=== PATIENT | female | born 1975 | race Hispanic/Latino ===

== ENCOUNTER 2022-02-15 16:58 | Emergency (ER) | payer MEDICARE ==
[~2022-02-15] VITALS: Ht 160 cm; Wt 90.7 kg
[2022-02-15 17:28] LABS: BASOPHILS % (AUTO) 0.6 % (0.0-5.0); EOSINOPHILS % (AUTO) 0.7 % (0.0-8.0); HEMATOCRIT 41.4 % (36-48); LYMPHOCYTES % (AUTO) 25.6 % (21.0-51.0); MEAN CORPUSCULAR HGB CONC 34.8 g/dL (32.0-36.0); MEAN CORPUSCULAR VOLUME 86.3 fL (79-99); MONOCYTES % (AUTO) 7.6 % (3.0-13.0); NEUTROPHILS % (AUTO) 64.9 % (40.0-77.0); PLATELET COUNT (AUTO) 269 K/uL (130-400); RED CELL DISTRIBUTION WIDTH 13.2 % (11.0-15.5); WHITE BLOOD COUNT (AUTO) 8.9 K/uL (4.8-10.8)
[2022-02-15] MEDS ORDERED: LIDOCAINE HCL 1% 20 ML VIAL INJ SCH (17:30)
[2022-02-15] MEDS ORDERED: SULFAMETHOX-TMP DS 800/160 TAB PO SCH (17:30)
[2022-02-15 17:32] LABS: CREATININE 0.7 mg/dL (0.5-1.5); POTASSIUM 3.8 mmol/L (3.5-5.1)
[2022-02-15 17:38] LABS: ALBUMIN 3.4 g/dL (3.5-5.0); TOTAL PROTEIN, SERUM 7.6 g/dL (6.0-8.3)
[2022-02-15] MEDS ORDERED: SULF1TAB42 PO (18:15)
[2022-02-15 18:25] VITALS: BP 136/82
== END 2022-02-15 18:27 | disposition home or self-care (01) ==
LOC: EDH 16:58
DX: L02.31 Cutaneous abscess of buttock (principal); E11.65 Type 2 diabetes mellitus with hyperglycemia
CPT/HCPCS: 10060; 36415; 80053; 85025

== ENCOUNTER 2022-05-04 13:15 | Emergency (ER) | payer MEDICARE ==
[~2022-05-04] VITALS: Ht 160 cm; Wt 90.7 kg
[~2022-05-04 13:15] MED LIST: SULF1TAB42 PO
[2022-05-04 13:46] LABS: BASOPHILS % (AUTO) 0.2 % (0.0-5.0); EOSINOPHILS % (AUTO) 0.2 % (0.0-8.0); HEMATOCRIT 44.7 % (36-48); LYMPHOCYTES % (AUTO) 5.1 % (21.0-51.0); MEAN CORPUSCULAR HEMOGLOBIN 29.6 pg (27.0-33.0); MEAN CORPUSCULAR HGB CONC 34.5 g/dL (32.0-36.0); MEAN CORPUSCULAR VOLUME 85.8 fL (79-99); MONOCYTES % (AUTO) 5.4 % (3.0-13.0); NEUTROPHILS % (AUTO) 88.4 % (40.0-77.0); PLATELET COUNT (AUTO) 248 K/uL (130-400); RED BLOOD CELL COUNT(AUTO) 5.21 MIL/uL (4.00-5.50); WHITE BLOOD COUNT (AUTO) 11.3 K/uL (4.8-10.8)
[2022-05-04 13:55] LABS: CREATININE 0.8 mg/dL (0.5-1.5); POTASSIUM 4.2 mmol/L (3.5-5.1)
[2022-05-04 13:59] LABS: ALBUMIN 3.6 g/dL (3.5-5.0); TOTAL PROTEIN, SERUM 7.9 g/dL (6.0-8.3)
[2022-05-04 14:11] LABS: APPEARANCE,URINE CLOUDY (CLEAR); BILIRUBIN,URINE NEGATIVE (NEGATIVE); COLOR,URINE YELLOW (YELLOW); GLUCOSE, URINE (UA) 500 mg/dL (NEGATIVE); KETONES,URINE 20 mg/dL (NEGATIVE); LEUKOCYTE ESTERASE ,URINE NEGATIVE Leu/uL (NEGATIVE); NITRATE,URINE NEGATIVE (NEGATIVE); OCCULT BLOOD,URINE NEGATIVE (NEGATIVE); PH,URINE 5.5 (5.0-8.0); PROTEIN,URINE 50 mg/dL (NEGATIVE); UROBILINOGEN,URINE 0.2 mg/dL (0.2-1.0)
[2022-05-04 14:34] LABS: BACTERIA,URINE FEW /HPF (None Seen); MUCUS,URINE RARE LPF (None Seen); SQUAMOUS EPITHELIAL CELL,UR MOD /HPF (0-2)
[2022-05-04] MEDS ORDERED: 0.9%NACL 1000ML 2,000 ML IV ONE (15:00)
[2022-05-04 15:45] VITALS: BP 132/61
[2022-05-04] MEDS ORDERED: 0.9%NACL 1000ML 1,000 ML IV ONE (16:39)
[2022-05-04] MEDS ORDERED: ACETAMINOPHEN 500 MG TABLET PO ONE (17:00)
[2022-05-04] MEDS ORDERED: ALBU90AE2 IH (18:04)
[2022-05-04] MEDS ORDERED: AZIT250T9 PO (18:04)
[2022-05-04] MEDS ORDERED: BENZ200C53 PO (18:04)
== END 2022-05-04 18:15 | disposition home or self-care (01) ==
LOC: EDH 13:15
DX: J21.9 Acute bronchiolitis, unspecified (principal); R05.9 Cough, unspecified; Z20.822 Contact with and (suspected) exposure to COVID-19; E11.9 Type 2 diabetes mellitus without complications; Z90.710 Acquired absence of both cervix and uterus; Z98.890 Other specified postprocedural states
CPT/HCPCS: 99285; 96360; 71045; 87635; 84484; 80053; 83690; 85025; 87880; 87804 ×2; 82948; 81001; 36415; 93005; C9803; J7030

== ENCOUNTER 2022-09-22 05:40 | Emergency (ER) | payer MEDICARE ==
[~2022-09-22] VITALS: Ht 160 cm; Wt 94.8 kg
[~2022-09-22 05:40] MED LIST changes: +ALBU90AE2 IH; +AZIT250T9 PO; +BENZ200C53 PO
[2022-09-22 05:42] VITALS: BP 136/84
[2022-09-22] MEDS ORDERED: KETOROLAC 60 MG VIAL (30MG/ML) IM ONE (06:30)
[2022-09-22] MEDS ORDERED: MELO-106 PO (06:49)
== END 2022-09-22 07:20 | disposition home or self-care (01) ==
LOC: EDH 05:40
DX: S89.91XA Unspecified injury of right lower leg, initial encounter (principal); E11.9 Type 2 diabetes mellitus without complications; X58.XXXA Exposure to other specified factors, initial encounter; Y93.89 Activity, other specified; Y92.89 Other specified places as the place of occurrence of the external cause; Y99.8 Other external cause status
CPT/HCPCS: 73562; 96372; 99283; J1885

== ENCOUNTER 2022-11-27 19:58 | Emergency (ER) | payer MEDICARE ==
[~2022-11-27] VITALS: Ht 160 cm; Wt 93.9 kg
[~2022-11-27 19:58] MED LIST changes: +MELO-106 PO
[2022-11-27 20:29] VITALS: RESP 20
[2022-11-27] MEDS ORDERED: TETRACAINE HCL 0.5% 4 ML OPHTH SOLN OP ONE (22:30)
[2022-11-27] MEDS ORDERED: FLUORESCEIN SODIUM 1 STRIP STRIP OP ONE (22:30)
[2022-11-27] MEDS ORDERED: NA BORATE/BORIC AC/H2O/NACL 120 ML OPHTH IRRIG SOLN OP ONE (22:30)
[2022-11-27] MEDS ORDERED: NEO/3.5O OD (22:58)
[2022-11-27] MEDS ORDERED: NEO/POLYMYX B SULF/DEXAMETH 3.5 GM TUBE OD ONE (23:00)
[2022-11-27] MEDS ORDERED: ERYTHROMYCIN BASE 0.5% OPHTH OINT 1 GM TUBE ONE (23:25)
== END 2022-11-27 23:38 | disposition home or self-care (01) ==
LOC: EDH 19:58
DX: S05.01XA Injury of conjunctiva and corneal abrasion without foreign body, right eye, initial encounter (principal); E11.9 Type 2 diabetes mellitus without complications; Z79.1 Long term (current) use of non-steroidal anti-inflammatories (NSAID); Z79.52 Long term (current) use of systemic steroids; X58.XXXA Exposure to other specified factors, initial encounter; Y93.89 Activity, other specified; Y92.89 Other specified places as the place of occurrence of the external cause; Y99.8 Other external cause status

== ENCOUNTER 2023-04-13 23:56 | Emergency (ER) | payer MEDICARE ==
[~2023-04-13] VITALS: Ht 160 cm; Wt 91.6 kg
[~2023-04-13 23:56] MED LIST changes: +NEO/3.5O OD
[2023-04-14 00:36] LABS: APPEARANCE,URINE CLEAR (CLEAR); BILIRUBIN,URINE NEGATIVE (NEGATIVE); COLOR,URINE YELLOW (YELLOW); GLUCOSE, URINE (UA) >=1000 mg/dL (NEGATIVE); KETONES,URINE 5 mg/dL (NEGATIVE); LEUKOCYTE ESTERASE ,URINE NEGATIVE Leu/uL (NEGATIVE); NITRATE,URINE NEGATIVE (NEGATIVE); OCCULT BLOOD,URINE TRACE-INTACT (NEGATIVE); PROTEIN,URINE NEGATIVE (NEGATIVE); UROBILINOGEN,URINE 0.2 mg/dL (0.2-1.0)
[2023-04-14 00:40] LABS: ADD UA MICROSCOPIC YES
[2023-04-14 00:48] LABS: CREATININE 0.7 mg/dL (0.5-1.5)
[2023-04-14 00:49] LABS: RBC,URINE 0-1 /HPF (0-1); SQUAMOUS EPITHELIAL CELL,UR FEW /HPF (0-2)
[2023-04-14 00:51] LABS: BASOPHILS # (AUTO) 0.04 K/uL (0.00-0.20); BASOPHILS % (AUTO) 0.6 % (0.0-5.0); EOSINOPHILS # (AUTO) 0.03 K/uL (0.00-0.70); EOSINOPHILS % (AUTO) 0.5 % (0.0-8.0); HEMATOCRIT 41.5 % (36-48); IMMATURE GRANULOCYTE ABSOLUTE 0.06 K/uL (0-1); LYMPHOCYTES % (AUTO) 15.4 % (21.0-51.0); MEAN CORPUSCULAR HEMOGLOBIN 30.6 pg (27.0-33.0); MEAN CORPUSCULAR HGB CONC 35.4 g/dL (32.0-36.0); MEAN CORPUSCULAR VOLUME 86.5 fL (79-99); MONOCYTES # (AUTO) 0.9 K/uL (0.1-1.0); MONOCYTES % (AUTO) 13.5 % (3.0-13.0); NEUTROPHILS # (AUTO) 4.4 K/uL (1.8-7.7); NEUTROPHILS % (AUTO) 69.1 % (40.0-77.0); PLATELET COUNT (AUTO) 200 K/uL (130-400); WHITE BLOOD COUNT (AUTO) 6.4 K/uL (4.8-10.8)
[2023-04-14 00:53] LABS: ALBUMIN 3.3 g/dL (3.5-5.0); BILIRUBIN,TOTAL 0.6 mg/dL (0.2-1.0); TOTAL PROTEIN, SERUM 7.5 g/dL (6.0-8.3)
[2023-04-14 04:56] LABS: INFLUENZA TYPE A Negative For Type A (NEGATIVE); INFLUENZA TYPE B Negative For Type B (NEGATIVE)
[2023-04-14 05:00] LABS: SARS-CoV-2, RNA, NAAT NEGATIVE SARS CoV-2 (NEGATIVE)
[2023-04-14] MEDS ORDERED: INSULIN HUMULIN R 100 UNIT/ML 3ML SQ ONE (05:00)
[2023-04-14] MEDS ORDERED: METOCLOPRAMIDE 10 MG/2 ML VIAL IVP ONE (05:00)
[2023-04-14] MEDS ORDERED: KETOROLAC 30MG VIAL (30MG/ML) IVP ONE (05:00)
[2023-04-14] MEDS ORDERED: FAMOTIDINE 20MG VIAL IV ONE (05:00)
[2023-04-14] MEDS ORDERED: 0.9%NACL 1000ML 1,000 ML IV ONE (05:00)
[2023-04-14 06:43] VITALS: BP 139/83; PULSE 82; RESP 16; O2SAT 100
== END 2023-04-14 06:44 | disposition home or self-care (01) ==
LOC: EDH 23:56
DX: B34.9 Viral infection, unspecified (principal); E11.65 Type 2 diabetes mellitus with hyperglycemia; I10 Essential (primary) hypertension; Z79.1 Long term (current) use of non-steroidal anti-inflammatories (NSAID); Z20.822 Contact with and (suspected) exposure to COVID-19
CPT/HCPCS: 99284; 80053; 85025; 87880; 87804 ×2; 82948 ×3; 81001; 36415; 87635; 96374; 96361; 96375; 93005; J1815; J7030; J1885; J2765

== ENCOUNTER 2023-11-15 21:27 | Emergency (ER) | payer MEDICARE ==
[~2023-11-15] VITALS: Ht 160 cm; Wt 88.5 kg
[~2023-11-15 21:27] MED LIST changes: -ALBU90AE2 IH; +ALBU90AE3 IH
[2023-11-15 22:39] LABS: RAPID GROUP A STREP negative (NEGATIVE)
[2023-11-15 22:52] LABS: INFLUENZA TYPE A Negative For Type A (NEGATIVE); INFLUENZA TYPE B Negative For Type B (NEGATIVE)
[2023-11-15 22:58] LABS: SARS-CoV-2, RNA, NAAT POSITIVE SARS CoV-2 (NEGATIVE)
[2023-11-16 00:12] VITALS: BP 145/86; PULSE 101; RESP 18; O2SAT 98
== END 2023-11-16 00:13 | disposition home or self-care (01) ==
LOC: EDH 21:27
DX: U07.1 COVID-19 (principal); E11.9 Type 2 diabetes mellitus without complications; I10 Essential (primary) hypertension; Z79.899 Other long term (current) drug therapy; Z90.49 Acquired absence of other specified parts of digestive tract; Z98.890 Other specified postprocedural states
CPT/HCPCS: 36415; 71045; 87635; 87804; 87880